=== PATIENT | female | born 1975 ===

== ENCOUNTER 2019-01-17 07:55 | Inpatient (IN) | payer OTHER ==
[~2019-01-17] VITALS: Ht 160 cm; Wt 61.2 kg
[2019-01-17] MEDS ORDERED: FORTAMET500 MG PO (08:30)
[2019-01-17] MEDS ORDERED: GLIM PO (08:31)
[2019-01-17] MEDS ORDERED: COZAAR25 MG PO (08:31)
[2019-01-17] MEDS ORDERED: COZAAR25 MG (08:59)
[2019-01-24] MEDS ORDERED: GLIMEPIRIDE2 MG PO (08:34)
[2019-01-24] MEDS ORDERED: FORTAMET1000 MG PO (08:36)
[2019-01-26] MEDS ORDERED: SIMETHICONE125 M1 PO (12:54)
[2019-01-26] MEDS ORDERED: COLACE100 MG PO (12:54)
[2019-01-26] MEDS ORDERED: ULTRAM50 MG PO (12:54)
== END 2019-01-26 13:21 | disposition home or self-care (01) | DRG 743 ==
LOC: O/R 08:30 → OB/GYN 01-24 07:00 → O/R 01-24 07:09 → OB/GYN 01-24 08:30
PROVIDERS: Surgery; ADMIT Obstetrics & Gynecology
PROC: 0UT24ZZ Resection of Bilateral Ovaries, Percutaneous Endoscopic Approach (ICD-10-PCS; 2019-01-24)
PROC: 0DNN4ZZ Release Sigmoid Colon, Percutaneous Endoscopic Approach (ICD-10-PCS; 2019-01-24)
PROC: 0UT94ZZ Resection of Uterus, Percutaneous Endoscopic Approach (ICD-10-PCS; principal; 2019-01-24 07:00)
PROC: 0UT74ZZ Resection of Bilateral Fallopian Tubes, Percutaneous Endoscopic Approach (ICD-10-PCS; 2019-01-24 07:00)
DX: D25.1 Intramural leiomyoma of uterus (principal); D25.0 Submucous leiomyoma of uterus; N72 Inflammatory disease of cervix uteri; N80.1 Endometriosis of ovary; N83.12 Corpus luteum cyst of left ovary; K66.0 Peritoneal adhesions (postprocedural) (postinfection); I10 Essential (primary) hypertension; E11.9 Type 2 diabetes mellitus without complications; Z79.4 Long term (current) use of insulin